=== PATIENT | male | born 1990 | race African-American/Black ===

== ENCOUNTER 2018-05-06 23:36 | Emergency (ER) | payer OTHER ==
[~2018-05-06] VITALS: Ht 182.9 cm; Wt 99.8 kg
[~2018-05-06 23:36] MED LIST: AUGMENTIN 875875 MG PO; AZO95 MG; BACTRIM DS TAB1 EACH PO; CIPROFLOXACIN500 M1 PO; IBUPROFEN 800800 M1 PO; KEFLEX500 MG PO; NOHOMEMEDICATIONS; NORCO 5-325 TA1 EAC1 PO; PERCOCET 5-3251 EACH PO; PHENAZOPYRIDIN200 M2 PO
[2018-05-07] MEDS ORDERED: NORCO 5-325 TA1 EAC1 PO (00:02)
[2018-05-07 00:17] VITALS: BP 162/98
== END 2018-05-07 00:17 | disposition home or self-care (01) ==
LOC: M.ERS 23:36
DX: S02.5XXA Fracture of tooth (traumatic), initial encounter for closed fracture (principal); F17.210 Nicotine dependence, cigarettes, uncomplicated; X58.XXXA Exposure to other specified factors, initial encounter; Y93.89 Activity, other specified; Y92.89 Other specified places as the place of occurrence of the external cause; Y99.8 Other external cause status

== ENCOUNTER 2018-06-05 17:52 | Emergency (ER) | payer OTHER ==
[~2018-06-05] VITALS: Ht 180.3 cm; Wt 113.4 kg
[2018-06-05 17:58] VITALS: BP 198/100
[2018-06-05] MEDS ORDERED: CLEOCIN HCL300 MG PO (18:05)
[2018-06-05] MEDS ORDERED: NORCO 5-325 TA1 EACH PO (18:05)
== END 2018-06-05 18:10 | disposition home or self-care (01) ==
LOC: M.ERS 17:52
DX: K02.9 Dental caries, unspecified (principal); F17.210 Nicotine dependence, cigarettes, uncomplicated

== ENCOUNTER 2019-02-12 19:54 | Emergency (ER) | payer OTHER ==
[~2019-02-12] VITALS: Ht 180.3 cm; Wt 113.4 kg
[~2019-02-12 19:54] MED LIST changes: +CLEOCIN HCL300 MG PO; +NORCO 5-325 TA1 EACH PO
[2019-02-12] MEDS ORDERED: NAPROSYN500 MG PO (21:46)
[2019-02-12] MEDS ORDERED: ZANAFLEX4 MG PO (21:46)
[2019-02-12 22:02] VITALS: BP 157/94
== END 2019-02-12 22:02 | disposition home or self-care (01) ==
LOC: M.ERS 19:54
DX: S80.02XA Contusion of left knee, initial encounter (principal); S80.01XA Contusion of right knee, initial encounter; S30.0XXA Contusion of lower back and pelvis, initial encounter; S00.83XA Contusion of other part of head, initial encounter; F90.9 Attention-deficit hyperactivity disorder, unspecified type; F17.210 Nicotine dependence, cigarettes, uncomplicated; Y08.89XA Assault by other specified means, initial encounter; Y93.89 Activity, other specified; Y92.89 Other specified places as the place of occurrence of the external cause; Y99.8 Other external cause status

== ENCOUNTER 2019-02-23 19:17 | Emergency (ER) | payer OTHER ==
[~2019-02-23] VITALS: Ht 180.3 cm; Wt 113.4 kg
[~2019-02-23 19:17] MED LIST changes: +NAPROSYN500 MG PO; +ZANAFLEX4 MG PO
[2019-02-23] MEDS ORDERED: NAPROSYN500 MG PO (19:47)
[2019-02-23] MEDS ORDERED: PENICILLIN VK500 M1 PO (19:47)
[2019-02-23] MEDS ORDERED: NORCO 5-325 TA1 EAC1 PO (19:47)
[2019-02-23 20:03] VITALS: BP 148/98
== END 2019-02-23 20:03 | disposition home or self-care (01) ==
LOC: M.ERS 19:17
DX: K04.7 Periapical abscess without sinus (principal); F17.210 Nicotine dependence, cigarettes, uncomplicated; F90.9 Attention-deficit hyperactivity disorder, unspecified type

== ENCOUNTER 2019-07-28 22:36 | Emergency (ER) | payer OTHER ==
[~2019-07-28] VITALS: Ht 182.9 cm; Wt 104.3 kg
[~2019-07-28 22:36] MED LIST changes: +PENICILLIN VK500 M1 PO
[2019-07-28 23:12] LABS: INFLUENZA A ANTIGEN Negative (Negative); INFLUENZA B ANTIGEN Negative (Negative)
[2019-07-28] MEDS ORDERED: VENTOLIN HFA INH8 GM INH (23:17)
[2019-07-28 23:22] VITALS: BP 132/89
== END 2019-07-28 23:22 | disposition home or self-care (01) ==
LOC: M.ERS 22:36
PROVIDERS: Nurse Practitioner Family
DX: B34.9 Viral infection, unspecified (principal); F17.210 Nicotine dependence, cigarettes, uncomplicated